=== PATIENT | male | born 1940 | race Caucasian/White ===

== ENCOUNTER 2016-09-01 16:41 | Inpatient (IN) | payer OTHER ==
[~2016-09-01] VITALS: Ht 175.3 cm; Wt 89.0 kg
[~2016-09-01 16:41] MED LIST: ASPI81CH43; ATEN1TAB38; FLUT250M2; LISI-275; METF-370; MONT10TA23; NORVASC; PRO AIR; ROSU20TA14; SPRIVA; TRIA25CA
[2016-09-01 18:10] LABS: Basophils # (auto) 0.1 uL; Basophils % (auto) 0.5 % (0.0-2.0); Eosinophils # (auto) 0.6 uL; Eosinophils % (auto) 5.4 % (0.0-7.0); Hematocrit 52.3 % (41.0-53.0); Lymphocytes # (auto) 2.2 uL; Lymphocytes % (auto) 19.1 % (10.0-50.0); Mean Corpuscular Hemoglobin 33.2 pg (28.0-32.0); Mean Corpuscular Hgb Conc. 34.3 g/dL (32.0-36.0); Mean Corpuscular Volume 96.7 fL (80.0-100.0); Mean Platelet Volume 8.1 fL (7.4-10.4); Monocytes # (auto) 0.9 uL; Monocytes % (auto) 7.5 % (0.0-12.0); Neutrophils # (auto) 7.7 uL; Neutrophils % (auto) 67.5 % (37.0-80.0); Platelet Count (auto) 264 10^3/uL (140-450); Red Cell Distribution Width 14.6 % (11.6-16.0); White Blood Cell 11.4 10^3/uL (4.4-10.8)
[2016-09-01 18:31] LABS: Albumin 3.8 g/dL (3.4-5.0); Alkaline Phosphatase 120 U/L (45-117); Anion Gap 6 (5-15); Aspartate Aminotransferase 25 U/L (15-37); BUN/Creatinine Ratio 23.1; Bilirubin, Total 0.6 mg/dL (0.2-1.0); Blood Urea Nitrogen 24 mg/dL (7-18); Carbon Dioxide 26 mmol/L (21-32); Chloride 107 mmol/L (98-107); GFR African American 90 mL/min; GFR Non-African American 74 mL/min; Glucose 111 mg/dL (74-106); Magnesium 2.6 mg/dL (1.6-2.6); Potassium 3.7 mmol/L (3.5-5.1); Sodium 139 mmol/L (136-145); Total Protein 7.9 g/dL (6.4-8.2)
[2016-09-01] MEDS ORDERED: BENA10TA9 PO (20:39)
[2016-09-01] MEDS ORDERED: CLOP75TA41 PO (20:39)
[2016-09-01] MEDS ORDERED: ATOR1TAB PO (20:39)
[2016-09-01] MEDS ORDERED: ASPirin 81 mg TAB PO ONE (22:45)
[2016-09-01] MEDS ORDERED: MORPHINE SULF INJ 2 MG/ML SYRINGE 1ML IV PRN (22:45)
[2016-09-01] MEDS ORDERED: NITROGLYCERIN 0.4 MG SL TAB SL PRN (22:45)
[2016-09-01] MEDS ORDERED: DEXTROSE (50%) 50ML SYRG IV PRN (22:45)
[2016-09-01] MEDS ORDERED: ALBUTEROL SULF 2.5 MG/0.5ML(0.5%) NEB SOLN NEB PRN (22:45)
[2016-09-02] VITALS (10 sets, daily range): BP systolic 123–165; BP diastolic 71–93
[2016-09-02] MEDS: ACCU-CHEK COMFORT CURVE STRIP VI SCH ×4 (06:47→22:02)
[2016-09-02] MEDS: InsuLIN REG 1unit/0.01ml Soln (100units/ml) SC SCH ×4 (06:48→22:00)
[2016-09-02] MEDS ORDERED: SUMAtriptan SUCCINATE 25 MG TAB PO PRN (09:30)
[2016-09-02] MEDS ORDERED: ACETAMINOPHEN 325 MG TAB PO PRN (09:30)
[2016-09-02] MEDS ORDERED: ONDANSETRON HCL 4 MG/2 ML VIAL IV PRN (09:30)
[2016-09-02] MEDS ORDERED: POTASSIUM CHL 20 Meq TABLET PO ONE (09:45)
[2016-09-02 09:56] LABS: Cholesterol 206 mg/dL (< 200); HDL Cholesterol 35 mg/dL (40-59); LDL Cholesterol 152 mg/dL (< 100); Triglycerides 147 mg/dL (< 150)
[2016-09-02] MEDS ORDERED: MONTELUKAST SODIUM 10 MG TAB PO SCH (10:00)
[2016-09-02 10:30] LABS: Urine Bilirubin Negative (Negative); Urine Blood Negative /uL (Negative); Urine Color Yellow (Yellow); Urine Glucose Normal (Normal); Urine Ketone TRACE (Negative); Urine Mucus FEW (None Seen); Urine Nitrite Negative (Negative); Urine RBC 1 /hpf (0 - 3); Urine Squamous Epithelial Cell FEW /hpf (<5); Urine Urobilinogen Normal (Negative)
[2016-09-02] MEDS: MONTELUKAST SODIUM 10 MG TAB PO SCH (10:40)
[2016-09-02] MEDS: HCTZ 25 MG TAB PO SCH (10:40)
[2016-09-02] MEDS: PANTOPRAZOLE 40 MG TAB PO SCH (10:40)
[2016-09-02] MEDS: ASPirin 81 mg TAB PO SCH (10:40)
[2016-09-02] MEDS: CLOPIDOGREL BISULFATE 75 MG TAB PO SCH (10:41)
[2016-09-02] MEDS: ATENOLOL 25 MG TAB PO SCH (10:41)
[2016-09-02] MEDS: BENAZEPRIL HCL 10 MG TAB PO SCH (10:41)
[2016-09-02] MEDS: metFORMIN HYDROCHLORIDE 500 MG TAB PO SCH (17:52)
[2016-09-02] MEDS: cefTRIAXone 1GM/50ML D5W 50 ML IV SCH (18:26)
[2016-09-02] MEDS ORDERED: ATORVASTATIN 20 MG TAB PO SCH (22:00)
[2016-09-03 04:38] VITALS: BP 136/86
[2016-09-03 06:02] LABS: Calcium 9.2 mg/dL (8.5-10.1); Potassium 3.9 mmol/L (3.5-5.1)
[2016-09-03 06:04] LABS: BUN/Creatinine Ratio 22.4
[2016-09-03] MEDS: ACCU-CHEK COMFORT CURVE STRIP VI SCH ×2 (06:31→11:39)
[2016-09-03] MEDS: metFORMIN HYDROCHLORIDE 500 MG TAB PO SCH (06:31)
[2016-09-03] MEDS: InsuLIN REG 1unit/0.01ml Soln (100units/ml) SC SCH ×2 (06:31→11:30)
[2016-09-03] MEDS: cefTRIAXone 1GM/50ML D5W 50 ML IV SCH (08:40)
[2016-09-03 09:02] VITALS: BP 126/82
[2016-09-03] MEDS: PANTOPRAZOLE 40 MG TAB PO SCH (09:24)
[2016-09-03] MEDS: CLOPIDOGREL BISULFATE 75 MG TAB PO SCH (09:24)
[2016-09-03] MEDS: MONTELUKAST SODIUM 10 MG TAB PO SCH (09:24)
[2016-09-03] MEDS: ASPirin 81 mg TAB PO SCH (09:24)
[2016-09-03] MEDS: HCTZ 25 MG TAB PO SCH (09:25)
[2016-09-03] MEDS: BENAZEPRIL HCL 10 MG TAB PO SCH (09:25)
[2016-09-03] MEDS: ATENOLOL 25 MG TAB PO SCH (09:25)
[2016-09-03 13:06] VITALS: BP 130/77
== END 2016-09-03 14:30 | disposition home or self-care (01) | DRG 65 ==
LOC: EDBD 16:41 → ER 16:44 → CENTRAL 16:45 → TELE-CENTR 09-02 00:18
PROVIDERS: ADMIT Internal Medicine; ATTEND Family Medicine
DX: I63.9 Cerebral infarction, unspecified (principal); G81.91 Hemiplegia, unspecified affecting right dominant side; E11.9 Type 2 diabetes mellitus without complications; E78.5 Hyperlipidemia, unspecified; J45.909 Unspecified asthma, uncomplicated; D72.829 Elevated white blood cell count, unspecified; I11.9 Hypertensive heart disease without heart failure; M19.90 Unspecified osteoarthritis, unspecified site; I48.0 Paroxysmal atrial fibrillation; M48.02 Spinal stenosis, cervical region; Z79.82 Long term (current) use of aspirin; Z79.84 Long term (current) use of oral hypoglycemic drugs; Z79.899 Other long term (current) drug therapy; Z88.5 Allergy status to narcotic agent; Z88.8 Allergy status to other drugs, medicaments and biological substances; Z91.013 Allergy to seafood; Z79.01 Long term (current) use of anticoagulants; Z87.440 Personal history of urinary (tract) infections; Z82.49 Family history of ischemic heart disease and other diseases of the circulatory system
CPT/HCPCS: 36415; 70450; 70551; 71010; 72141; 80048; 80053; 80061; 81001; 82607; 82962; 83036; 83735; 84484; 85025; 87081; 93005; 93886; 94640; 95819; 97163; J0696; J1815

== ENCOUNTER 2017-06-12 16:10 | Inpatient (IN) | payer OTHER ==
[~2017-06-12] VITALS: Ht 175.3 cm; Wt 92.5 kg
[~2017-06-12 16:10] MED LIST changes: +ATOR1TAB PO; +BENA10TA9 PO; +CLOP75TA41 PO
[2017-06-12 17:17] LABS: Basophils # (auto) 0.1 uL; Basophils % (auto) 0.4 % (0.0-2.0); Eosinophils # (auto) 0 uL; Hematocrit 48.8 % (41.0-53.0); Hemoglobin 16.5 g/dL (13.5-17.5); Lymphocytes # (auto) 1.1 uL; Lymphocytes % (auto) 6.7 % (10.0-50.0); Mean Corpuscular Hemoglobin 32.6 pg (28.0-32.0); Mean Corpuscular Hgb Conc. 33.8 g/dL (32.0-36.0); Mean Corpuscular Volume 96.3 fL (80.0-100.0); Monocytes % (auto) 5.7 % (0.0-12.0); Neutrophils # (auto) 14.5 uL; Neutrophils % (auto) 87.2 % (37.0-80.0); Nucleated Red Blood Cells % 0.1 %; Platelet Count (auto) 277 10^3/uL (140-450); Red Blood Cells 5.07 10^6/uL (4.5-5.90); Red Cell Distribution Width 14.1 % (11.8-14.3); White Blood Cell 16.6 10^3/uL (4.4-10.8)
[2017-06-12 17:28] LABS: Alanine Aminotransferase 33 U/L (16-61); Albumin 3.9 g/dL (3.4-5.0); Alkaline Phosphatase 89 U/L (45-117); Anion Gap 10 (5-15); Aspartate Aminotransferase 14 U/L (15-37); BUN/Creatinine Ratio 31.1; Bilirubin, Total 0.4 mg/dL (0.2-1.0); Blood Urea Nitrogen 28 mg/dL (7-18); Calcium 9.3 mg/dL (8.5-10.1); Carbon Dioxide 21 mmol/L (21-32); Chloride 106 mmol/L (98-107); GFR African American 106 mL/min; GFR Non-African American 87 mL/min; Glucose 115 mg/dL (74-106); Magnesium 2.7 mg/dL (1.6-2.6); Potassium 3.9 mmol/L (3.5-5.1); Sodium 137 mmol/L (136-145); Total Protein 7.9 g/dL (6.4-8.2)
[2017-06-12 23:29] LABS: Urine Bacteria NONE SEEN /hpf (None Seen); Urine Blood Negative /uL (Negative); Urine Hyaline Cast FEW /lpf (0 - 2); Urine Specific Gravity 1.015 (1.001-1.035); Urine WBC <1 /hpf (0 - 3)
[2017-06-13] MEDS ORDERED: ACETAMINOPHEN 500 MG TAB PO ONE ×2 (00:48→01:00)
[2017-06-13] MEDS ORDERED: cloNIDine HCL 0.1 MG TAB ONE (00:48)
[2017-06-13] MEDS ORDERED: cloNIDine HCL 0.1 MG TAB PO ONE (01:00)
[2017-06-13] MEDS ORDERED: DOCUSATE SOD 100 MG CAP PO PRN (03:00)
[2017-06-13] MEDS ORDERED: NITROGLYCERIN 0.4 MG SL TAB SL PRN (03:00)
[2017-06-13] MEDS ORDERED: MORPHINE SULFATE 4 MG/ML SYR/VIAL IV PRN (03:00)
[2017-06-13] MEDS ORDERED: TEMAZEPAM 15 MG CAP PO PRN (03:00)
[2017-06-13] MEDS ORDERED: ONDANSETRON HCL 4 MG/2 ML VIAL IV PRN (03:00)
[2017-06-13] MEDS ORDERED: ACETAMINOPHEN 325 MG TAB PO PRN (03:00)
[2017-06-13] MEDS ORDERED: DEXTROSE (50%) 50ML SYRG IV PRN (03:00)
[2017-06-13] MEDS ORDERED: cefTRIAXone 1GM/10ml IVPUSH 10 ML IV ONE (03:00)
[2017-06-13] MEDS ORDERED: cloNIDine HCL 0.1 MG TAB PO PRN (03:00)
[2017-06-13] MEDS ORDERED: hydrALAZINE HCL 20 MG/ML VL IV ONE (03:45)
[2017-06-13 04:50] VITALS: BP 156/95
[2017-06-13 05:30] VITALS: BP 156/95
[2017-06-13] MEDS ORDERED: HYDR25TA4 PO (06:34)
[2017-06-13] MEDS ORDERED: SUMA25TA2 PO (06:34)
[2017-06-13] MEDS ORDERED: TRAM100T37 PO (06:34)
[2017-06-13] MEDS: ACCU-CHEK COMFORT CURVE STRIP VI SCH ×2 (07:05→11:39)
[2017-06-13] MEDS: InsuLIN REG 1unit/0.01ml Soln (100units/ml) SC SCH ×2 (07:06→11:39)
[2017-06-13 09:00] VITALS: BP 149/89
[2017-06-13] MEDS ORDERED: LISINOPRIL 5 MG TAB PO SCH (10:00)
[2017-06-13] MEDS ORDERED: amLODIPine BESYLATE 5 MG TAB PO SCH (10:00)
[2017-06-13] MEDS ORDERED: ENOXAPARIN SOD 40 MG/0.4 ML SYRINGE SC SCH (10:00)
[2017-06-13] MEDS ORDERED: BENAZEPRIL HCL 10 MG TAB PO SCH (10:00)
[2017-06-13] MEDS ORDERED: ASPirin 81 mg TAB PO SCH (10:00)
[2017-06-13] MEDS ORDERED: FAMOTIDINE 20 MG TAB PO SCH (10:00)
[2017-06-13] MEDS ORDERED: CLOPIDOGREL BISULFATE 75 MG TAB PO SCH (10:00)
[2017-06-13] MEDS ORDERED: IPRATROPIUM BROM 0.5 MG/2.5ML INH SOL NEB PRN (11:15)
[2017-06-13] MEDS ORDERED: ALBUTEROL SULF 2.5 MG/0.5ML(0.5%) NEB SOLN NEB PRN (11:15)
[2017-06-13 13:00] VITALS: BP 133/83
[2017-06-13] MEDS ORDERED: cefTRIAXone 1GM/10ml IVPUSH 10 ML IV SCH (22:00)
[2017-06-13] MEDS ORDERED: ATORVASTATIN 20 MG TAB PO SCH (22:00)
[2017-06-13] MEDS ORDERED: MONTELUKAST SODIUM 10 MG TAB PO SCH (22:00)
== END 2017-06-13 15:03 | disposition home or self-care (01) | DRG 206 ==
LOC: EDBD 16:10 → ER 16:11 → TELE 16:12 → TELE-WESTW 06-13 04:52
PROVIDERS: ADMIT Nurse Practitioner; ATTEND Internal Medicine Geriatric Medicine
DX: M94.0 Chondrocostal junction syndrome [Tietze] (principal); E11.9 Type 2 diabetes mellitus without complications; D72.829 Elevated white blood cell count, unspecified; E78.5 Hyperlipidemia, unspecified; I10 Essential (primary) hypertension; J45.909 Unspecified asthma, uncomplicated; Z86.73 Personal history of transient ischemic attack (TIA), and cerebral infarction without residual deficits; Z91.041 Radiographic dye allergy status; Z88.5 Allergy status to narcotic agent; Z91.013 Allergy to seafood; Z82.49 Family history of ischemic heart disease and other diseases of the circulatory system
CPT/HCPCS: 36415; 71045; 80053; 81001; 82962; 83605; 83735; 83880; 84484; 85025; 87040; 93005; 93306; 96374; 96375; J1815

== ENCOUNTER 2019-05-15 12:02 | Emergency (ER) | payer OTHER ==
[~2019-05-15] VITALS: Ht 182.9 cm; Wt 90.7 kg
[~2019-05-15 12:02] MED LIST changes: +ALBU1AER4 IN; +AMLO5TAB15 PO; -ASPI81CH43; -ATEN1TAB38; -FLUT250M2; +FLUT250M2 IN; +HYDR25TA4 PO; -LISI-275; -METF-370; +METF-489 PO; -NORVASC; -PRO AIR; -ROSU20TA14; -SPRIVA; +TRAM100T37 PO; -TRIA25CA
[2019-05-15] MEDS ORDERED: MECLIZINE HCL 25 MG TAB PO ONE (12:15)
[2019-05-15] MEDS ORDERED: cloNIDine HCL 0.1 MG TAB PO ONE (12:15)
[2019-05-15 14:08] LABS: Basophils # (auto) 0.1 uL; Basophils % (auto) 0.6 % (0.0-2.0); Eosinophils # (auto) 0.3 uL; Hematocrit 51.1 % (41.0-53.0); Hemoglobin 17.2 g/dL (13.5-17.5); Lymphocytes # (auto) 1.5 uL; Lymphocytes % (auto) 15.4 % (10.0-50.0); Mean Corpuscular Hemoglobin 32.8 pg (28.0-32.0); Mean Corpuscular Hgb Conc. 33.6 g/dL (32.0-36.0); Mean Corpuscular Volume 97.3 fL (80.0-100.0); Monocytes # (auto) 0.6 uL; Monocytes % (auto) 6.2 % (0.0-12.0); Neutrophils # (auto) 7.3 uL; Neutrophils % (auto) 74.8 % (37.0-80.0); Nucleated Red Blood Cells % 0.1 %; Platelet Count (auto) 251 10^3/uL (140-450); Red Blood Cells 5.25 10^6/uL (4.5-5.90); Red Cell Distribution Width 13.9 % (11.8-14.3); White Blood Cell 9.8 10^3/uL (4.4-10.8)
[2019-05-15 14:24] LABS: Albumin 3.9 g/dL (3.4-5.0); Anion Gap 6 (5-15); Blood Urea Nitrogen 13 mg/dL (7-18); Calcium 9.4 mg/dL (8.5-10.1); Carbon Dioxide 26 mmol/L (21-32); Chloride 107 mmol/L (98-107); Glucose 101 mg/dL (74-106); Potassium 3.9 mmol/L (3.5-5.1); Sodium 139 mmol/L (136-145)
[2019-05-15 14:31] LABS: Alanine Aminotransferase 23 U/L (16-61); Alkaline Phosphatase 140 U/L (45-117); Aspartate Aminotransferase 16 U/L (15-37); BUN/Creatinine Ratio 14.9; Bilirubin, Total 0.5 mg/dL (0.2-1.0); GFR African American 109 mL/min; GFR Non-African American 90 mL/min
[2019-05-15 15:14] VITALS: BP 138/94
== END 2019-05-15 15:40 | disposition home or self-care (01) ==
LOC: EDBD 12:02 → EDUNIT# 12:02 → ER 12:04
DX: R42 Dizziness and giddiness (principal); I10 Essential (primary) hypertension; R06.02 Shortness of breath; J44.9 Chronic obstructive pulmonary disease, unspecified; E11.9 Type 2 diabetes mellitus without complications; E78.5 Hyperlipidemia, unspecified; Z86.73 Personal history of transient ischemic attack (TIA), and cerebral infarction without residual deficits
CPT/HCPCS: 36415; 70450; 71045; 80053; 83880; 84484; 85025; 99285; J8597

== ENCOUNTER 2020-12-05 23:01 | Inpatient (IN) | payer OTHER ==
[~2020-12-05] VITALS: Ht 175.3 cm; Wt 83.5 kg
[~2020-12-05 23:01] MED LIST changes: +AMLO-489 PO; -AMLO5TAB15 PO; +ATOR-47 PO; -ATOR1TAB PO; -CLOP75TA41 PO; +CLOP75TA70 PO
[2020-12-05 23:58] LABS: Basophils # (auto) 0 10 ^3/uL (0-0.2); Eosinophils # (auto) 0 10 ^3/uL (0-0.8)
[2020-12-05 23:59] LABS: Basophils % (auto) 0.1 % (0.0-2.0); Hematocrit 55.4 % (41.0-53.0); Lymphocytes % (auto) 7.7 % (10.0-50.0); Mean Corpuscular Hemoglobin 32.3 pg (28.0-32.0); Mean Corpuscular Hgb Conc. 34.2 g/dL (32.0-36.0); Mean Corpuscular Volume 94.2 fL (80.0-100.0); Monocytes # (auto) 1.1 10 ^3/uL (0-1.3); Monocytes % (auto) 8.4 % (0.0-12.0); Neutrophils # (auto) 11.4 10 ^3/uL (1.6-8.6); Neutrophils % (auto) 83.8 % (37.0-80.0); Nucleated Red Blood Cells % 0.5 %; Red Blood Cells 5.87 10^6/uL (4.5-5.90); Red Cell Distribution Width 14.2 % (11.8-14.3); White Blood Cell 13.6 10^3/uL (4.4-10.8)
[2020-12-06 00:12] LABS: INR 1.1 (0.9-1.15)
[2020-12-06 00:27] LABS: Albumin 3.1 g/dL (3.4-5.0); BUN/Creatinine Ratio 26.2; Calcium 9.7 mg/dL (8.5-10.1); Magnesium 2.8 mg/dL (1.6-2.6); Potassium 4.3 mmol/L (3.5-5.1)
[2020-12-06 00:29] LABS: Lactic Acid w/Reflex 2.9 mmol/L (0.4-2.0)
[2020-12-06 00:32] LABS: Bilirubin, Total 0.8 mg/dL (0.2-1.0); Total Protein 8.3 g/dL (6.4-8.2)
[2020-12-06] MEDS ORDERED: AZITHROMYCIN 500MG/ 250ML 250 ML IV ONE (00:45)
[2020-12-06] MEDS ORDERED: cefTRIAXone 1GM/50ML D5W 50 ML IV ONE (00:45)
[2020-12-06] MEDS ORDERED: SODIUM CHLORIDE 0.9% 1,000 ML IV ONE (01:00)
[2020-12-06] MEDS ORDERED: SODIUM CHLORIDE 0.9% 500 ML IV ONE (05:30)
[2020-12-06] MEDS ORDERED: DEXTROSE (50%) 50ML SYRG IV PRN (05:30)
[2020-12-06] MEDS ORDERED: ONDANSETRON HCL 4 MG/2 ML VIAL IV PRN (05:30)
[2020-12-06] MEDS ORDERED: MORPHINE SULFATE INJECTION 2 MG/ML SYRG IV PRN (05:30)
[2020-12-06] MEDS ORDERED: NITROGLYCERIN 0.4 MG SL TAB SL PRN (05:30)
[2020-12-06] MEDS: SODIUM CHLORIDE 0.9% 1,000 ML IV SCH ×2 (05:54→18:54)
[2020-12-06] MEDS: ACCU-CHEK COMFORT CURVE STRIP VI SCH ×4 (05:58→22:29)
[2020-12-06] MEDS: InsuLIN REG 1unit/0.01ml Soln (100units/ml) SC SCH ×3 (05:58→17:43)
[2020-12-06 06:09] LABS: Magnesium 2.5 mg/dL (1.6-2.6)
[2020-12-06 06:17] LABS: CRP High Sensitivity 9.06 mg/dL (< 0.3)
[2020-12-06 06:38] LABS: Urine Bacteria NONE SEEN /hpf (None Seen); Urine Blood 1+ /uL (Negative); Urine Hyaline Cast MANY /lpf (0 - 2); Urine Mucus FEW (None Seen); Urine Specific Gravity 1.023 (1.001-1.035); Urine WBC 12 /hpf (0 - 3)
[2020-12-06] MEDS: BUDESONIDE (INHALATION) 180 MCG IH IN SCH ×2 (07:20→19:08)
[2020-12-06] MEDS: cefTRIAXone 1GM/50ML D5W 50 ML IV SCH (07:55)
[2020-12-06] MEDS: AZITHROMYCIN 500MG/ 250ML 250 ML IV SCH (09:59)
[2020-12-06] MEDS: CHOLECALCIFEROL (VITD3) 2,000 UNIT CAP/TAB PO SCH (10:00)
[2020-12-06] MEDS ORDERED: AZITHROMYCIN 500MG/ 250ML 250 ML IV SCH (10:00)
[2020-12-06] MEDS: ENOXAPARIN SOD 40 MG/0.4 ML SYRINGE SC SCH (10:00)
[2020-12-06] MEDS: ASCORBIC ACID 1,000 MG TAB PO SCH (10:00)
[2020-12-06] MEDS: DexAMETHasone SOD PHOS 10MG/1ML VIAL INJ IV SCH (10:00)
[2020-12-06] MEDS: HCTZ 25 MG TAB PO SCH (10:01)
[2020-12-06] MEDS: amLODIPine BESYLATE 5 MG TAB PO SCH (10:01)
[2020-12-06] MEDS: ACETAMINOPHEN 500 MG TAB PO PRN (17:21)
[2020-12-06] MEDS: ALBUTEROL SULF HFA 90MCG INH 200DOSE IN PRN (19:08)
[2020-12-06 22:00] VITALS: BP 139/73
[2020-12-06] MEDS: ATORVASTATIN 20 MG TAB PO SCH (22:29)
[2020-12-06] MEDS: MONTELUKAST SODIUM 10 MG TAB PO SCH (22:29)
[2020-12-07] VITALS: BP 139/73
[2020-12-07] MEDS: InsuLIN REG 1unit/0.01ml Soln (100units/ml) SC SCH ×5 (00:32→23:38)
[2020-12-07 01:22] VITALS: BP 139/73
[2020-12-07] MEDS ORDERED: VANCOMYCIN PER PHARMACY 0 MG IV SCH ×2 (02:30→18:30)
[2020-12-07] MEDS ORDERED: VANCOMYCIN 1GM/250ML 250 ML IV ONE (02:45)
[2020-12-07] MEDS: SODIUM CHLORIDE 0.9% 1,000 ML IV SCH ×2 (03:30→21:00)
[2020-12-07 05:00] VITALS: BP 125/76
[2020-12-07 06:54] LABS: Basophils # (auto) 0 10 ^3/uL (0-0.2); Basophils % (auto) 0.1 % (0.0-2.0); Eosinophils # (auto) 0 10 ^3/uL (0-0.8); Eosinophils % (auto) 0.1 % (0.0-7.0); Hematocrit 46.8 % (41.0-53.0); Hemoglobin 15.8 g/dL (13.5-17.5); Lymphocytes # (auto) 0.6 10 ^3/uL (0.4-5.4); Lymphocytes % (auto) 4.8 % (10.0-50.0); Mean Corpuscular Hemoglobin 32.1 pg (28.0-32.0); Mean Corpuscular Hgb Conc. 33.8 g/dL (32.0-36.0); Mean Corpuscular Volume 95.2 fL (80.0-100.0); Monocytes # (auto) 0.8 10 ^3/uL (0-1.3); Monocytes % (auto) 5.8 % (0.0-12.0); Neutrophils # (auto) 11.7 10 ^3/uL (1.6-8.6); Neutrophils % (auto) 89.2 % (37.0-80.0); Nucleated Red Blood Cells % 0.1 %; Red Blood Cells 4.92 10^6/uL (4.5-5.90); Red Cell Distribution Width 14.1 % (11.8-14.3); White Blood Cell 13.2 10^3/uL (4.4-10.8)
[2020-12-07] MEDS: ALBUTEROL SULF HFA 90MCG INH 200DOSE IN PRN ×2 (06:57→22:04)
[2020-12-07] MEDS: BUDESONIDE (INHALATION) 180 MCG IH IN SCH ×2 (06:57→22:04)
[2020-12-07] MEDS: ACCU-CHEK COMFORT CURVE STRIP VI SCH ×4 (07:20→23:38)
[2020-12-07 10:01] LABS: Albumin 2.4 g/dL (3.4-5.0); BUN/Creatinine Ratio 40.7; Calcium 8.7 mg/dL (8.5-10.1); Potassium 5.2 mmol/L (3.5-5.1)
[2020-12-07 10:04] LABS: Bilirubin, Total 0.8 mg/dL (0.2-1.0); Total Protein 7.3 g/dL (6.4-8.2)
[2020-12-07] MEDS: DexAMETHasone SOD PHOS 10MG/1ML VIAL INJ IV SCH (13:02)
[2020-12-07] MEDS: cefTRIAXone 1GM/50ML D5W 50 ML IV SCH (13:02)
[2020-12-07] MEDS: AZITHROMYCIN 500MG/ 250ML 250 ML IV SCH (13:02)
[2020-12-07] MEDS: amLODIPine BESYLATE 5 MG TAB PO SCH (13:03)
[2020-12-07] MEDS: ASCORBIC ACID 1,000 MG TAB PO SCH (13:03)
[2020-12-07] MEDS: HCTZ 25 MG TAB PO SCH (13:03)
[2020-12-07] MEDS: CHOLECALCIFEROL (VITD3) 2,000 UNIT CAP/TAB PO SCH (13:04)
[2020-12-07] MEDS: ENOXAPARIN SOD 40 MG/0.4 ML SYRINGE SC SCH (13:04)
[2020-12-07] MEDS ORDERED: FLUT230A2 IN (17:11)
[2020-12-07] MEDS ORDERED: MONT10TA42 PO (17:11)
[2020-12-07] MEDS ORDERED: NITR0.4S29 SL (17:11)
[2020-12-07] MEDS ORDERED: BENA40TA8 PO (17:11)
[2020-12-07] MEDS ORDERED: CHOL20007 PO (17:11)
[2020-12-07] MEDS ORDERED: DONE1TAB88 PO (17:11)
[2020-12-07] MEDS ORDERED: HYDR25TA5 PO (17:11)
[2020-12-07] MEDS ORDERED: ALBU108A5 IN (17:11)
[2020-12-07 17:13] VITALS: BP 115/66
[2020-12-07] MEDS ORDERED: REMDESIVIR PER PHARMACY 0 ML IV SCH (17:45)
[2020-12-07] MEDS ORDERED: REMDESIVIR 200 MG in NS 210ml LOADING DOSE ADULT IV ONE (20:00)
[2020-12-07] MEDS: ATORVASTATIN 20 MG TAB PO SCH (21:00)
[2020-12-07] MEDS: MONTELUKAST SODIUM 10 MG TAB PO SCH (21:00)
[2020-12-07 22:00] VITALS: BP 122/82
[2020-12-08] MEDS: VANCOMYCIN 1GM/250ML 250 ML IV SCH (04:47)
[2020-12-08 05:00] VITALS: BP 139/81
[2020-12-08] MEDS ORDERED: VANCOMYCIN 1GM/250ML 250 ML IV SCH (05:00)
[2020-12-08] MEDS: InsuLIN REG 1unit/0.01ml Soln (100units/ml) SC SCH ×4 (06:21→23:49)
[2020-12-08] MEDS: ACCU-CHEK COMFORT CURVE STRIP VI SCH ×4 (06:22→23:49)
[2020-12-08 08:04] LABS: Basophils # (auto) 0.1 10 ^3/uL (0-0.2); Basophils % (auto) 0.5 % (0.0-2.0); Eosinophils # (auto) 0 10 ^3/uL (0-0.8); Eosinophils % (auto) 0.2 % (0.0-7.0); Hematocrit 43.6 % (41.0-53.0); Hemoglobin 14.6 g/dL (13.5-17.5); Lymphocytes # (auto) 1.1 10 ^3/uL (0.4-5.4); Lymphocytes % (auto) 9.8 % (10.0-50.0); Mean Corpuscular Hemoglobin 31.6 pg (28.0-32.0); Mean Corpuscular Hgb Conc. 33.6 g/dL (32.0-36.0); Mean Corpuscular Volume 94.1 fL (80.0-100.0); Monocytes # (auto) 0.9 10 ^3/uL (0-1.3); Monocytes % (auto) 8.3 % (0.0-12.0); Neutrophils # (auto) 8.9 10 ^3/uL (1.6-8.6); Neutrophils % (auto) 81.2 % (37.0-80.0); Nucleated Red Blood Cells % 0.1 %; Red Blood Cells 4.63 10^6/uL (4.5-5.90); Red Cell Distribution Width 13.7 % (11.8-14.3)
[2020-12-08 08:22] LABS: Albumin 2.4 g/dL (3.4-5.0); Calcium 8.8 mg/dL (8.5-10.1); Potassium 3.3 mmol/L (3.5-5.1)
[2020-12-08 08:29] LABS: BUN/Creatinine Ratio 38.5; Bilirubin, Total 0.6 mg/dL (0.2-1.0); Total Protein 6.3 g/dL (6.4-8.2)
[2020-12-08 09:00] VITALS: BP 119/75
[2020-12-08] MEDS: cefTRIAXone 1GM/50ML D5W 50 ML IV SCH (09:11)
[2020-12-08] MEDS: BUDESONIDE (INHALATION) 180 MCG IH IN SCH ×2 (09:42→22:40)
[2020-12-08] MEDS: ALBUTEROL SULF HFA 90MCG INH 200DOSE IN PRN ×2 (09:42→23:37)
[2020-12-08] MEDS: AZITHROMYCIN 500MG/ 250ML 250 ML IV SCH (10:13)
[2020-12-08] MEDS: HCTZ 25 MG TAB PO SCH (10:14)
[2020-12-08] MEDS: ASCORBIC ACID 1,000 MG TAB PO SCH (10:14)
[2020-12-08] MEDS: amLODIPine BESYLATE 5 MG TAB PO SCH (10:14)
[2020-12-08] MEDS: CHOLECALCIFEROL (VITD3) 2,000 UNIT CAP/TAB PO SCH (10:15)
[2020-12-08] MEDS: ENOXAPARIN SOD 40 MG/0.4 ML SYRINGE SC SCH (10:15)
[2020-12-08] MEDS: SODIUM CHLORIDE 0.9% 1,000 ML IV SCH ×2 (11:04→23:49)
[2020-12-08 13:00] VITALS: BP 109/69
[2020-12-08] MEDS ORDERED: REMDESIVIR 100mg 100 MG in SODIUM CHL 0.9% 230 ML IV SCH (15:00)
[2020-12-08 16:49] VITALS: BP 132/76
[2020-12-08 22:00] VITALS: BP 147/83
[2020-12-08] MEDS: MONTELUKAST SODIUM 10 MG TAB PO SCH (22:01)
[2020-12-08] MEDS: ATORVASTATIN 20 MG TAB PO SCH (22:01)
[2020-12-09 05:00] VITALS: BP 138/85
[2020-12-09] MEDS: ACCU-CHEK COMFORT CURVE STRIP VI SCH ×4 (06:00→23:45)
[2020-12-09] MEDS: InsuLIN REG 1unit/0.01ml Soln (100units/ml) SC SCH ×4 (06:00→23:45)
[2020-12-09] MEDS: VANCOMYCIN 1GM/250ML 250 ML IV SCH (06:44)
[2020-12-09] MEDS: ALBUTEROL SULF HFA 90MCG INH 200DOSE IN PRN (06:53)
[2020-12-09] MEDS: BUDESONIDE (INHALATION) 180 MCG IH IN SCH ×2 (06:53→21:57)
[2020-12-09 08:15] VITALS: BP 127/82
[2020-12-09] MEDS: cefTRIAXone 1GM/50ML D5W 50 ML IV SCH (08:55)
[2020-12-09 09:00] VITALS: BP 127/82
[2020-12-09 09:34] LABS: Basophils # (auto) 0.1 10 ^3/uL (0-0.2); Basophils % (auto) 0.8 % (0.0-2.0); Eosinophils # (auto) 0.1 10 ^3/uL (0-0.8); Eosinophils % (auto) 0.9 % (0.0-7.0); Hematocrit 43.7 % (41.0-53.0); Hemoglobin 15.2 g/dL (13.5-17.5); Lymphocytes # (auto) 1.2 10 ^3/uL (0.4-5.4); Mean Corpuscular Hemoglobin 32.4 pg (28.0-32.0); Mean Corpuscular Hgb Conc. 34.8 g/dL (32.0-36.0); Mean Corpuscular Volume 93.1 fL (80.0-100.0); Monocytes # (auto) 0.7 10 ^3/uL (0-1.3); Monocytes % (auto) 10.1 % (0.0-12.0); Neutrophils # (auto) 5.2 10 ^3/uL (1.6-8.6); Neutrophils % (auto) 71.2 % (37.0-80.0); Red Cell Distribution Width 13.5 % (11.8-14.3); White Blood Cell 7.2 10^3/uL (4.4-10.8)
[2020-12-09 10:02] LABS: Albumin 2.5 g/dL (3.4-5.0); Calcium 8.7 mg/dL (8.5-10.1)
[2020-12-09] MEDS: HCTZ 25 MG TAB PO SCH (10:06)
[2020-12-09] MEDS: AZITHROMYCIN 500MG/ 250ML 250 ML IV SCH (10:06)
[2020-12-09 10:07] LABS: BUN/Creatinine Ratio 26.2; Bilirubin, Total 0.8 mg/dL (0.2-1.0); Total Protein 6.6 g/dL (6.4-8.2)
[2020-12-09] MEDS: amLODIPine BESYLATE 5 MG TAB PO SCH (10:07)
[2020-12-09] MEDS: ENOXAPARIN SOD 40 MG/0.4 ML SYRINGE SC SCH (10:07)
[2020-12-09] MEDS: ASCORBIC ACID 1,000 MG TAB PO SCH (10:07)
[2020-12-09] MEDS: CHOLECALCIFEROL (VITD3) 2,000 UNIT CAP/TAB PO SCH (10:07)
[2020-12-09 13:00] VITALS: BP 136/82
[2020-12-09] MEDS ORDERED: POTASSIUM CHL 20 Meq TABLET PO ONE (13:30)
[2020-12-09] MEDS: SODIUM CHLORIDE 0.9% 1,000 ML IV SCH (14:24)
[2020-12-09 17:02] VITALS: BP 135/87
[2020-12-09 22:00] VITALS: BP 153/87
[2020-12-09] MEDS: MONTELUKAST SODIUM 10 MG TAB PO SCH (22:05)
[2020-12-09] MEDS: ATORVASTATIN 20 MG TAB PO SCH (22:05)
[2020-12-10 05:00] VITALS: BP 137/85
[2020-12-10 05:52] LABS: Basophils # (auto) 0 10 ^3/uL (0-0.2); Basophils % (auto) 0.2 % (0.0-2.0); Eosinophils # (auto) 0.2 10 ^3/uL (0-0.8); Hematocrit 46.3 % (41.0-53.0); Lymphocytes # (auto) 1.3 10 ^3/uL (0.4-5.4); Lymphocytes % (auto) 15.8 % (10.0-50.0); Mean Corpuscular Hemoglobin 32.4 pg (28.0-32.0); Mean Corpuscular Hgb Conc. 34.5 g/dL (32.0-36.0); Mean Corpuscular Volume 93.9 fL (80.0-100.0); Monocytes # (auto) 1.1 10 ^3/uL (0-1.3); Monocytes % (auto) 13.4 % (0.0-12.0); Neutrophils # (auto) 5.6 10 ^3/uL (1.6-8.6); Neutrophils % (auto) 68.6 % (37.0-80.0); Nucleated Red Blood Cells % 0.1 %; Red Blood Cells 4.93 10^6/uL (4.5-5.90); White Blood Cell 8.1 10^3/uL (4.4-10.8)
[2020-12-10 05:55] LABS: Calcium 8.8 mg/dL (8.5-10.1); Potassium 3.4 mmol/L (3.5-5.1)
[2020-12-10] MEDS: InsuLIN REG 1unit/0.01ml Soln (100units/ml) SC SCH ×4 (06:00→23:48)
[2020-12-10 06:04] LABS: Albumin 2.6 g/dL (3.4-5.0); CRP High Sensitivity 5.41 mg/dL (< 0.3); Total Protein 7.2 g/dL (6.4-8.2)
[2020-12-10] MEDS: VANCOMYCIN 1GM/250ML 250 ML IV SCH (06:14)
[2020-12-10] MEDS: SODIUM CHLORIDE 0.9% 1,000 ML IV SCH ×2 (06:14→16:22)
[2020-12-10] MEDS: ACCU-CHEK COMFORT CURVE STRIP VI SCH ×4 (06:27→23:48)
[2020-12-10] MEDS: BUDESONIDE (INHALATION) 180 MCG IH IN SCH ×2 (06:49→22:00)
[2020-12-10] MEDS: ALBUTEROL SULF HFA 90MCG INH 200DOSE IN PRN ×2 (06:49→22:50)
[2020-12-10 08:15] VITALS: BP 128/83
[2020-12-10 09:00] VITALS: BP 136/91
[2020-12-10] MEDS: cefTRIAXone 1GM/50ML D5W 50 ML IV SCH (09:07)
[2020-12-10] MEDS: AZITHROMYCIN 500MG/ 250ML 250 ML IV SCH (11:11)
[2020-12-10] MEDS: HCTZ 25 MG TAB PO SCH (11:11)
[2020-12-10] MEDS: ENOXAPARIN SOD 40 MG/0.4 ML SYRINGE SC SCH (11:12)
[2020-12-10] MEDS: CHOLECALCIFEROL (VITD3) 2,000 UNIT CAP/TAB PO SCH (11:12)
[2020-12-10] MEDS: ASCORBIC ACID 1,000 MG TAB PO SCH (11:12)
[2020-12-10] MEDS: amLODIPine BESYLATE 5 MG TAB PO SCH (11:12)
[2020-12-10 13:00] VITALS: BP 128/83
[2020-12-10] MEDS: ACETAMINOPHEN 500 MG TAB PO PRN (13:08)
[2020-12-10 16:47] VITALS: BP 122/75
[2020-12-10 22:00] VITALS: BP 136/84
[2020-12-10] MEDS ORDERED: VANCOMYCIN 1GM/250ML 250 ML IV SCH (22:00)
[2020-12-10] MEDS: MONTELUKAST SODIUM 10 MG TAB PO SCH (22:40)
[2020-12-10] MEDS: ATORVASTATIN 20 MG TAB PO SCH (22:40)
[2020-12-11 05:00] VITALS: BP 135/89
[2020-12-11] MEDS: InsuLIN REG 1unit/0.01ml Soln (100units/ml) SC SCH ×4 (06:00→23:39)
[2020-12-11] MEDS: SODIUM CHLORIDE 0.9% 1,000 ML IV SCH (06:09)
[2020-12-11] MEDS: ACCU-CHEK COMFORT CURVE STRIP VI SCH ×4 (06:10→23:39)
[2020-12-11 07:27] LABS: Basophils # (auto) 0 10 ^3/uL (0-0.2); Basophils % (auto) 0.5 % (0.0-2.0); Eosinophils # (auto) 0.3 10 ^3/uL (0-0.8); Eosinophils % (auto) 2.7 % (0.0-7.0); Hematocrit 47.1 % (41.0-53.0); Hemoglobin 16.3 g/dL (13.5-17.5); Mean Corpuscular Hemoglobin 32.6 pg (28.0-32.0); Mean Corpuscular Hgb Conc. 34.7 g/dL (32.0-36.0); Mean Corpuscular Volume 93.8 fL (80.0-100.0); Monocytes % (auto) 10.4 % (0.0-12.0); Neutrophils # (auto) 7.5 10 ^3/uL (1.6-8.6); Neutrophils % (auto) 76.4 % (37.0-80.0); Red Blood Cells 5.02 10^6/uL (4.5-5.90); Red Cell Distribution Width 13.6 % (11.8-14.3); White Blood Cell 9.8 10^3/uL (4.4-10.8)
[2020-12-11 07:38] LABS: Potassium 3.2 mmol/L (3.5-5.1)
[2020-12-11 07:39] LABS: Albumin 2.5 g/dL (3.4-5.0); BUN/Creatinine Ratio 17.6; Bilirubin, Total 1.1 mg/dL (0.2-1.0); Calcium 9.3 mg/dL (8.5-10.1); Total Protein 7.1 g/dL (6.4-8.2)
[2020-12-11 08:15] VITALS: BP 144/89
[2020-12-11 09:00] VITALS: BP_SYST 128; BP_SYST 141; BP_DIAS 85; BP_DIAS 89
[2020-12-11] MEDS: cefTRIAXone 1GM/50ML D5W 50 ML IV SCH (09:45)
[2020-12-11] MEDS: HCTZ 25 MG TAB PO SCH (09:45)
[2020-12-11] MEDS: ENOXAPARIN SOD 40 MG/0.4 ML SYRINGE SC SCH (09:46)
[2020-12-11] MEDS: CHOLECALCIFEROL (VITD3) 2,000 UNIT CAP/TAB PO SCH (09:46)
[2020-12-11] MEDS: ASCORBIC ACID 1,000 MG TAB PO SCH (09:46)
[2020-12-11] MEDS: amLODIPine BESYLATE 5 MG TAB PO SCH (09:46)
[2020-12-11] MEDS: AZITHROMYCIN 500MG/ 250ML 250 ML IV SCH (10:48)
[2020-12-11] MEDS: BUDESONIDE (INHALATION) 180 MCG IH IN SCH ×2 (11:23→21:39)
[2020-12-11] MEDS: ALBUTEROL SULF HFA 90MCG INH 200DOSE IN PRN ×2 (11:23→21:39)
[2020-12-11] MEDS ORDERED: POTASSIUM CHL 20 Meq TABLET PO ONE (12:45)
[2020-12-11 13:00] VITALS: BP 128/85
[2020-12-11 18:00] VITALS: BP 131/74
[2020-12-11 21:41] VITALS: BP 127/82
[2020-12-11] MEDS: ATORVASTATIN 20 MG TAB PO SCH (22:41)
[2020-12-11] MEDS: MONTELUKAST SODIUM 10 MG TAB PO SCH (22:42)
[2020-12-12 05:00] VITALS: BP 136/84
[2020-12-12] MEDS: InsuLIN REG 1unit/0.01ml Soln (100units/ml) SC SCH ×4 (05:51→23:15)
[2020-12-12] MEDS: ACCU-CHEK COMFORT CURVE STRIP VI SCH ×4 (05:51→23:16)
[2020-12-12 06:18] LABS: Basophils # (auto) 0 10 ^3/uL (0-0.2); Basophils % (auto) 0.4 % (0.0-2.0); Eosinophils # (auto) 0.3 10 ^3/uL (0-0.8); Eosinophils % (auto) 3.1 % (0.0-7.0); Hematocrit 47.7 % (41.0-53.0); Hemoglobin 16.5 g/dL (13.5-17.5); Lymphocytes # (auto) 1.2 10 ^3/uL (0.4-5.4); Mean Corpuscular Hemoglobin 32.2 pg (28.0-32.0); Mean Corpuscular Hgb Conc. 34.6 g/dL (32.0-36.0); Mean Corpuscular Volume 93.1 fL (80.0-100.0); Monocytes % (auto) 11.4 % (0.0-12.0); Neutrophils # (auto) 6.5 10 ^3/uL (1.6-8.6); Neutrophils % (auto) 72.1 % (37.0-80.0); Nucleated Red Blood Cells % 0.2 %; Red Blood Cells 5.13 10^6/uL (4.5-5.90); Red Cell Distribution Width 13.6 % (11.8-14.3)
[2020-12-12 06:42] LABS: Potassium 3.3 mmol/L (3.5-5.1)
[2020-12-12 06:52] LABS: Albumin 2.7 g/dL (3.4-5.0); BUN/Creatinine Ratio 17.3; Bilirubin, Total 0.9 mg/dL (0.2-1.0); Calcium 9.2 mg/dL (8.5-10.1); Total Protein 7.2 g/dL (6.4-8.2)
[2020-12-12] MEDS: ALBUTEROL SULF HFA 90MCG INH 200DOSE IN PRN ×2 (07:16→20:56)
[2020-12-12] MEDS: BUDESONIDE (INHALATION) 180 MCG IH IN SCH ×2 (07:16→20:56)
[2020-12-12 08:00] VITALS: BP 132/87
[2020-12-12] MEDS: CHOLECALCIFEROL (VITD3) 2,000 UNIT CAP/TAB PO SCH (09:08)
[2020-12-12] MEDS: ASCORBIC ACID 1,000 MG TAB PO SCH (09:08)
[2020-12-12] MEDS: amLODIPine BESYLATE 5 MG TAB PO SCH (09:09)
[2020-12-12] MEDS: HCTZ 25 MG TAB PO SCH (09:09)
[2020-12-12] MEDS: ENOXAPARIN SOD 40 MG/0.4 ML SYRINGE SC SCH (09:09)
[2020-12-12 12:00] VITALS: BP 123/72
[2020-12-12 15:53] VITALS: BP 121/75
[2020-12-12] MEDS: ATORVASTATIN 20 MG TAB PO SCH (21:08)
[2020-12-12] MEDS: MONTELUKAST SODIUM 10 MG TAB PO SCH (21:08)
[2020-12-12 22:00] VITALS: BP 105/64
[2020-12-13 05:00] VITALS: BP 116/76
[2020-12-13] MEDS: ACCU-CHEK COMFORT CURVE STRIP VI SCH ×2 (05:23→12:00)
[2020-12-13] MEDS: InsuLIN REG 1unit/0.01ml Soln (100units/ml) SC SCH ×2 (05:24→12:00)
[2020-12-13 07:04] LABS: Alanine Aminotransferase 47 U/L (16-61); Albumin 2.6 g/dL (3.4-5.0); Anion Gap 11 (5-15); Aspartate Aminotransferase 34 U/L (15-37); BUN/Creatinine Ratio 20.6; Blood Urea Nitrogen 20 mg/dL (7-18); Calcium 8.9 mg/dL (8.5-10.1); Carbon Dioxide 26 mmol/L (21-32); Chloride 100 mmol/L (98-107); GFR African American 96 mL/min; GFR Non-African American 79 mL/min; Glucose 101 mg/dL (74-106); Potassium 4.2 mmol/L (3.5-5.1); Sodium 137 mmol/L (136-145)
[2020-12-13 07:07] LABS: Alkaline Phosphatase 100 U/L (45-117); Bilirubin, Total 1.2 mg/dL (0.2-1.0); Total Protein 6.7 g/dL (6.4-8.2)
[2020-12-13 07:16] LABS: Basophils # (auto) 0.1 10 ^3/uL (0-0.2); Basophils % (auto) 0.9 % (0.0-2.0); Eosinophils # (auto) 0.3 10 ^3/uL (0-0.8); Eosinophils % (auto) 2.9 % (0.0-7.0); Hematocrit 49.6 % (41.0-53.0); Hemoglobin 16.7 g/dL (13.5-17.5); Lymphocytes # (auto) 1.2 10 ^3/uL (0.4-5.4); Mean Corpuscular Hemoglobin 32.1 pg (28.0-32.0); Mean Corpuscular Hgb Conc. 33.6 g/dL (32.0-36.0); Mean Corpuscular Volume 95.6 fL (80.0-100.0); Monocytes % (auto) 9.4 % (0.0-12.0); Neutrophils # (auto) 7.7 10 ^3/uL (1.6-8.6); Neutrophils % (auto) 74.8 % (37.0-80.0); Nucleated Red Blood Cells % 0.7 %; Red Blood Cells 5.19 10^6/uL (4.5-5.90); Red Cell Distribution Width 13.6 % (11.8-14.3); White Blood Cell 10.3 10^3/uL (4.4-10.8)
[2020-12-13 09:00] VITALS: BP 128/78
[2020-12-13] MEDS: BUDESONIDE (INHALATION) 180 MCG IH IN SCH (09:30)
[2020-12-13] MEDS: ALBUTEROL SULF HFA 90MCG INH 200DOSE IN PRN (09:30)
[2020-12-13] MEDS: ASCORBIC ACID 1,000 MG TAB PO SCH (09:34)
[2020-12-13] MEDS: CHOLECALCIFEROL (VITD3) 2,000 UNIT CAP/TAB PO SCH (09:34)
[2020-12-13] MEDS: HCTZ 25 MG TAB PO SCH (09:34)
[2020-12-13] MEDS: amLODIPine BESYLATE 5 MG TAB PO SCH (09:35)
[2020-12-13] MEDS: ENOXAPARIN SOD 40 MG/0.4 ML SYRINGE SC SCH (10:00)
== END 2020-12-13 12:00 | disposition home or self-care (01) | DRG 177 ==
LOC: EDBD 23:01 → ER 23:01 → TELE 12-06 05:30 → TELE-EAST 12-06 20:33
PROVIDERS: ADMIT Nurse Practitioner; ATTEND Internal Medicine
PROC: XW033E5 Introduction of Remdesivir Anti-infective into Peripheral Vein, Percutaneous Approach, New Technology Group 5 (ICD-10-PCS; principal; 2020-12-07)
PROC: 05HC33Z Insertion of Infusion Device into Left Basilic Vein, Percutaneous Approach (ICD-10-PCS; 2020-12-07)
PROC: B54NZZA Ultrasonography of Left Upper Extremity Veins, Guidance (ICD-10-PCS; 2020-12-07)
DX: U07.1 COVID-19 (principal); J12.82 Pneumonia due to coronavirus disease 2019; J96.01 Acute respiratory failure with hypoxia; M62.82 Rhabdomyolysis; N17.9 Acute kidney failure, unspecified; E44.0 Moderate protein-calorie malnutrition; R78.81 Bacteremia; J44.0 Chronic obstructive pulmonary disease with (acute) lower respiratory infection; I10 Essential (primary) hypertension; E11.9 Type 2 diabetes mellitus without complications; R62.7 Adult failure to thrive; Z86.73 Personal history of transient ischemic attack (TIA), and cerebral infarction without residual deficits; Z68.27 Body mass index [BMI] 27.0-27.9, adult; Z88.5 Allergy status to narcotic agent; Z88.8 Allergy status to other drugs, medicaments and biological substances
CPT/HCPCS: 36415; 70450; 71045; 72125; 80053; 80202; 81001; 82550; 82728; 82962; 83036; 83605; 83615; 83735; 83880; 84484; 85025; 85379; 85610; 86141; 87040; 87077; 87186; 87426; 93005; 94640; 96361; 96365; 96366; 96368; 96372; 96375; 97116; 97530; G0378; J0696; J1100; J1815